=== PATIENT | female | born 1965 | race Caucasian/White ===

== ENCOUNTER 2017-01-07 00:56 | Inpatient (IN) | payer MEDICAID ==
[~2017-01-07] VITALS: Ht 172.7 cm; Wt 48.0 kg
[~2017-01-07 00:56] MED LIST: ASCO500S2 PO; AZIT250T6 PO; BACL10TA PO; CALC1TAB15 GT; CARB200T PO; DIAZ5 PO; ERGO400C GT; FAMO20 GT; GLYC1TAB11 PO; GUAI118.5 PO; IPRNEB IH; IPRNEB NEB; LEVE100S7 GT; MULT240L12 GT; NORE-20 GT; POLY17PO20 PO; TIZA4TAB4 PO
[2017-01-07 03:18] LABS: BASOPHILS % (AUTO) 0.6 % (0.0-2.0); EOSINOPHILS % (AUTO) 6.1 % (1.0-6.0); HEMATOCRIT 37.1 % (36-46); HEMOGLOBIN 12.2 g/dL (12.0-16.0); LYMPHOCYTES # (AUTO) 2.4 K/uL (1.0-4.8); LYMPHOCYTES % (AUTO) 20.5 % (22.0-44.0); MEAN CORPUSCULAR HEMOGLOBIN 31.6 pg (26.0-34.0); MEAN CORPUSCULAR HGB CONC 32.9 G/dL (31.0-37.0); MEAN CORPUSCULAR VOLUME 96 fL (80-100); MONOCYTES # (AUTO) 0.6 K/uL (0.1-1.0); MONOCYTES % (AUTO) 5.4 % (2.0-9.0); NEUTROPHILS % (AUTO) 67.4 % (40.0-70.0); PLATELET COUNT (AUTO) 288 K/uL (150-450); RED BLOOD CELL COUNT(AUTO) 3.87 MIL/uL (4.00-5.20); RED CELL DISTRIBUTION WIDTH 13.1 % (11.5-14.5); WHITE BLOOD COUNT (AUTO) 11.8 K/uL (4.5-11.0)
[2017-01-07 03:24] LABS: ANION GAP 7 mmol/L (8-16); CALCIUM, TOTAL 8.3 mg/dL (8.8-10.5); CARBON DIOXIDE 28 mmol/L (22-29); CHLORIDE 99 mmol/L (98-107); CREATININE 0.53 mg/dL (0.60-1.30); GLOMERULAR FILTR. RATE CALC > 60 mL/min (>60); POTASSIUM 4.6 mmol/L (3.5-5.1); SODIUM SERUM 134 mmol/L (136-145); UREA NITROGEN, BLOOD 22 mg/dL (7-18)
[2017-01-07] MEDS ORDERED: CefTRIAXone 1 GM/DEXTROSE 50 ML IV ONE (03:30)
[2017-01-07] MEDS ORDERED: IPRATROPIUM BROMIDE 0.5 MG/2.5 ML NEB SOLUTION NEB ONE (03:30)
[2017-01-07] MEDS ORDERED: MethylPREDNISolone SOD SUCC 125 MG/2 ML VIAL IVP ONE (03:30)
[2017-01-07] MEDS ORDERED: LORazepam 2 MG/ML VIAL IVP ONE (03:30)
[2017-01-07] MEDS ORDERED: ALBUTEROL SULFATE 5 MG/ML 20 ML NEB SOLN [BULK] NEB ONE (03:30)
[2017-01-07 03:32] LABS: LACTIC ACID 1.3 mmol/L (0.4-2.0)
[2017-01-07 03:40] LABS: ALANINE AMINOTRANSFERASE 18 U/L (12-78); ALBUMIN 2.9 g/dL (3.4-5.0); ASPARTATE AMINOTRANSFERASE 13 U/L (15-37); BILIRUBIN,TOTAL 0.2 mg/dL (0.1-1.0); CREATINE KINASE, TOTAL 54 U/L (26-192); TOTAL PROTEIN, SERUM 7.1 g/dL (6.4-8.2)
[2017-01-07 03:41] LABS: PROTHROMBIN TIME 10.3 SEC (9.4-11.6)
[2017-01-07] MEDS ORDERED: 0.9% SODIUM CHLORIDE 5 ML NEB SOLUTION NEB ONE (03:55)
[2017-01-07 04:20] LABS: APPEARANCE,URINE CLOUDY (CLEAR); GLUCOSE, URINE (UA) NEGATIVE (NEGATIVE); KETONES,URINE NEGATIVE (NEGATIVE); LEUKOCYTE ESTERASE ,URINE NEGATIVE (NEGATIVE); OCCULT BLOOD,URINE NEGATIVE (NEGATIVE); PROTEIN,URINE NEGATIVE (NEGATIVE)
[2017-01-07 04:20] LABS: B-TYPE NATRIURETIC PEPTIDE 40 pg/mL (0-100)
[2017-01-07 04:27] LABS: ADD UA MICROSCOPIC NO
[2017-01-07] MEDS ORDERED: CARBAMAZEPINE 200 MG/10 ML JT ONE (04:45)
[2017-01-07] MEDS ORDERED: UDCUP JT ONE (04:45)
[2017-01-07] MEDS ORDERED: ONDANSETRON HCL 4 MG/2 ML VIAL IVP PRN (05:45)
[2017-01-07] MEDS ORDERED: IPRATROPIUM BROMIDE 0.5 MG/2.5 ML NEB SOLUTION NEB PRN (05:45)
[2017-01-07] MEDS ORDERED: 0.9% SODIUM CHLORIDE 10 ML SYRINGE IVP PRN (05:45)
[2017-01-07] MEDS ORDERED: ALBUTEROL SULFATE 2.5 MG/0.5 ML NEB SOLUTION NEB PRN (05:45)
[2017-01-07] MEDS ORDERED: OxyCODONE HCL/ACETAMINOPHEN 5-325 MG TABLET GT PRN ×2 (05:45)
[2017-01-07] MEDS: ALBUTEROL SULFATE 2.5 MG/0.5 ML NEB SOLUTION NEB SCH ×3 (07:04→19:58)
[2017-01-07] MEDS: IPRATROPIUM BROMIDE 0.5 MG/2.5 ML NEB SOLUTION NEB SCH ×3 (07:04→19:58)
[2017-01-07] MEDS: TiZANidine HCL 4 MG TABLET GT SCH ×3 (08:21→18:00)
[2017-01-07] MEDS: UDCUP PO SCH ×3 (08:27→22:27)
[2017-01-07] MEDS: CARBAMAZEPINE 200 MG/10 ML PO SCH ×3 (08:27→22:27)
[2017-01-07] MEDS: MULTIVITAMINS WITH MINERALS, THERAPEUTIC 15 ML UDCUP GT SCH (08:28)
[2017-01-07] MEDS: MethylPREDNISolone SOD SUCC 125 MG/2 ML VIAL IVP SCH ×2 (08:29→16:54)
[2017-01-07] MEDS: DOCUSATE SODIUM 100 MG CAPSULE GT SCH ×2 (09:18→22:27)
[2017-01-07] MEDS: LevETIRAcetam 100 MG/ML 5 ML SOLUTION UDCUP GT SCH ×2 (09:19→22:27)
[2017-01-07] MEDS: CALCIUM OYSTER SHELL 500 MG TABLET GT SCH (09:20)
[2017-01-07] MEDS: BACLOFEN 10 MG TABLET GT SCH ×4 (09:20→22:26)
[2017-01-07] MEDS: POLYETHYLENE GLYCOL 3350 17 GM PACKET GT SCH (09:20)
[2017-01-07] MEDS: DIAZEPAM 5 MG TABLET GT SCH ×2 (09:21→22:26)
[2017-01-07] MEDS: PANTOPRAZOLE SODIUM 40 MG/VIAL IVP SCH (09:21)
[2017-01-07] MEDS: ASCORBIC ACID 500 MG TABLET GT SCH (09:21)
[2017-01-07] MEDS: GLYCOPYRROLATE 1 MG TABLET GT SCH ×2 (09:21→22:27)
[2017-01-07 13:43] VITALS: BP 129/83
[2017-01-07 14:02] VITALS: BP 104/52
[2017-01-07 17:20] VITALS: BP 125/81
[2017-01-07 18:08] VITALS: BP 122/75
[2017-01-07] MEDS ORDERED: PNEUMOCOCCAL VACCINE POLYVALENT 0.5 ML VIAL [PPSV23] IM ONE (20:00)
[2017-01-07] MEDS ORDERED: NORETHINDRONE ETHINYL ESTRAD GT SCH (20:00)
[2017-01-07 20:30] VITALS: BP 124/78
[2017-01-07] MEDS ORDERED: HALOPERIDOL LACTATE 5 MG/ML VIAL IVP PRN (22:00)
[2017-01-07] MEDS ORDERED: LORazepam 2 MG/ML VIAL IVP PRN (22:00)
[2017-01-07] MEDS: CHOLECALCIFEROL (VIT D3) 400 UNITS TABLET PO SCH (22:27)
[2017-01-07 23:30] VITALS: BP 118/74
[2017-01-08] MEDS: TiZANidine HCL 4 MG TABLET GT SCH ×4 (00:10→18:55)
[2017-01-08] MEDS: MethylPREDNISolone SOD SUCC 125 MG/2 ML VIAL IVP SCH ×3 (00:11→18:45)
[2017-01-08] MEDS: IPRATROPIUM BROMIDE 0.5 MG/2.5 ML NEB SOLUTION NEB SCH ×4 (02:39→19:07)
[2017-01-08] MEDS: ALBUTEROL SULFATE 2.5 MG/0.5 ML NEB SOLUTION NEB SCH ×4 (02:39→19:07)
[2017-01-08] MEDS: CARBAMAZEPINE 200 MG/10 ML PO SCH ×3 (06:07→21:15)
[2017-01-08] MEDS: UDCUP PO SCH ×3 (06:07→21:15)
[2017-01-08 06:38] LABS: BASOPHILS % (AUTO) 0.3 % (0.0-2.0); EOSINOPHILS % (AUTO) 0 % (1.0-6.0); HEMATOCRIT 36.3 % (36-46); HEMOGLOBIN 12.1 g/dL (12.0-16.0); LYMPHOCYTES # (AUTO) 0.9 K/uL (1.0-4.8); LYMPHOCYTES % (AUTO) 7.9 % (22.0-44.0); MEAN CORPUSCULAR HEMOGLOBIN 32.1 pg (26.0-34.0); MEAN CORPUSCULAR HGB CONC 33.4 G/dL (31.0-37.0); MEAN CORPUSCULAR VOLUME 96 fL (80-100); MONOCYTES # (AUTO) 0.3 K/uL (0.1-1.0); MONOCYTES % (AUTO) 2.5 % (2.0-9.0); NEUTROPHILS # (AUTO) 10.7 K/uL (1.8-7.7); PLATELET COUNT (AUTO) 278 K/uL (150-450); RED BLOOD CELL COUNT(AUTO) 3.78 MIL/uL (4.00-5.20); RED CELL DISTRIBUTION WIDTH 12.9 % (11.5-14.5)
[2017-01-08 06:56] LABS: ANION GAP 8 mmol/L (8-16); CALCIUM, TOTAL 8.8 mg/dL (8.8-10.5); CARBON DIOXIDE 25 mmol/L (22-29); CHLORIDE 97 mmol/L (98-107); CREATININE 0.55 mg/dL (0.60-1.30); GLOMERULAR FILTR. RATE CALC > 60 mL/min (>60); POTASSIUM 4.1 mmol/L (3.5-5.1); SODIUM SERUM 130 mmol/L (136-145); UREA NITROGEN, BLOOD 15 mg/dL (7-18)
[2017-01-08 07:11] LABS: NEUTROPHILS % (AUTO) 89.3 % (40.0-70.0)
[2017-01-08 07:12] LABS: RBC MORPHOLOGY COMMENT NORMAL RBC MORPH
[2017-01-08 07:48] VITALS: BP 96/54
[2017-01-08] MEDS: CALCIUM OYSTER SHELL 500 MG TABLET GT SCH (09:24)
[2017-01-08] MEDS: LevETIRAcetam 100 MG/ML 5 ML SOLUTION UDCUP GT SCH ×2 (09:24→21:15)
[2017-01-08] MEDS: ASCORBIC ACID 500 MG TABLET GT SCH (09:24)
[2017-01-08] MEDS: DIAZEPAM 5 MG TABLET GT SCH ×2 (09:24→21:16)
[2017-01-08] MEDS: BACLOFEN 10 MG TABLET GT SCH ×4 (09:25→21:16)
[2017-01-08] MEDS: MULTIVITAMINS WITH MINERALS, THERAPEUTIC 15 ML UDCUP GT SCH (09:25)
[2017-01-08] MEDS: POLYETHYLENE GLYCOL 3350 17 GM PACKET GT SCH (09:26)
[2017-01-08] MEDS: DOCUSATE SODIUM 100 MG CAPSULE GT SCH ×2 (09:30→21:16)
[2017-01-08] MEDS: GLYCOPYRROLATE 1 MG TABLET GT SCH ×2 (09:30→21:16)
[2017-01-08 12:54] VITALS: BP 112/82
[2017-01-08] MEDS: PANTOPRAZOLE SODIUM 40 MG/VIAL IVP SCH (18:45)
[2017-01-08 20:25] VITALS: BP 101/72
[2017-01-08] MEDS: CHOLECALCIFEROL (VIT D3) 400 UNITS TABLET PO SCH (21:15)
[2017-01-08] MEDS ORDERED: SODIUM CHLORIDE 0.9% IRRIG BTL 1,000 ML IRRIG ONE (21:27)
[2017-01-08 23:57] VITALS: BP 135/86
[2017-01-09] MEDS: TiZANidine HCL 4 MG TABLET GT SCH ×5 (00:30→23:54)
[2017-01-09] MEDS: MethylPREDNISolone SOD SUCC 125 MG/2 ML VIAL IVP SCH ×4 (00:30→23:54)
[2017-01-09] MEDS: IPRATROPIUM BROMIDE 0.5 MG/2.5 ML NEB SOLUTION NEB SCH ×4 (02:28→19:39)
[2017-01-09] MEDS: ALBUTEROL SULFATE 2.5 MG/0.5 ML NEB SOLUTION NEB SCH ×4 (02:28→19:39)
[2017-01-09] MEDS ORDERED: WATER FOR IRRIGATION,STERILE 1000 ML SOLUTION BOTTLE ONE (04:36)
[2017-01-09 04:48] VITALS: BP 143/94
[2017-01-09] MEDS: CARBAMAZEPINE 200 MG/10 ML PO SCH ×3 (06:42→20:06)
[2017-01-09] MEDS: UDCUP PO SCH ×3 (06:42→20:06)
[2017-01-09 08:24] VITALS: BP 132/90
[2017-01-09] MEDS: POLYETHYLENE GLYCOL 3350 17 GM PACKET GT SCH (08:39)
[2017-01-09] MEDS: LevETIRAcetam 100 MG/ML 5 ML SOLUTION UDCUP GT SCH ×2 (08:39→20:06)
[2017-01-09] MEDS: GLYCOPYRROLATE 1 MG TABLET GT SCH ×2 (08:39→20:05)
[2017-01-09] MEDS: BACLOFEN 10 MG TABLET GT SCH ×4 (08:40→20:05)
[2017-01-09] MEDS: ASCORBIC ACID 500 MG TABLET GT SCH (08:40)
[2017-01-09] MEDS: MULTIVITAMINS WITH MINERALS, THERAPEUTIC 15 ML UDCUP GT SCH (08:40)
[2017-01-09] MEDS: DOCUSATE SODIUM 100 MG CAPSULE GT SCH ×2 (08:40→20:04)
[2017-01-09] MEDS: CALCIUM OYSTER SHELL 500 MG TABLET GT SCH (08:40)
[2017-01-09] MEDS: DIAZEPAM 5 MG TABLET GT SCH ×2 (08:41→20:05)
[2017-01-09] MEDS: PANTOPRAZOLE SODIUM 40 MG/VIAL IVP SCH (08:59)
[2017-01-09 11:55] VITALS: BP 117/74
[2017-01-09 15:27] LABS: BASOPHILS % (AUTO) 0.4 % (0.0-2.0); EOSINOPHILS % (AUTO) 0.1 % (1.0-6.0); HEMATOCRIT 38.4 % (36-46); HEMOGLOBIN 12.7 g/dL (12.0-16.0); LYMPHOCYTES # (AUTO) 3.4 K/uL (1.0-4.8); LYMPHOCYTES % (AUTO) 24.2 % (22.0-44.0); MEAN CORPUSCULAR HGB CONC 33.2 G/dL (31.0-37.0); MEAN CORPUSCULAR VOLUME 97 fL (80-100); MONOCYTES # (AUTO) 1.5 K/uL (0.1-1.0); MONOCYTES % (AUTO) 10.4 % (2.0-9.0); NEUTROPHILS # (AUTO) 9.1 K/uL (1.8-7.7); NEUTROPHILS % (AUTO) 64.9 % (40.0-70.0); PLATELET COUNT (AUTO) 290 K/uL (150-450); RED BLOOD CELL COUNT(AUTO) 3.97 MIL/uL (4.00-5.20); RED CELL DISTRIBUTION WIDTH 13.2 % (11.5-14.5)
[2017-01-09 15:36] LABS: ANION GAP 10 mmol/L (8-16); CARBON DIOXIDE 26 mmol/L (22-29); CHLORIDE 100 mmol/L (98-107); POTASSIUM 3.5 mmol/L (3.5-5.1); SODIUM SERUM 136 mmol/L (136-145); UREA NITROGEN, BLOOD 21 mg/dL (7-18)
[2017-01-09 15:50] LABS: CALCIUM, TOTAL 8.8 mg/dL (8.8-10.5); CREATININE 0.57 mg/dL (0.60-1.30); GLOMERULAR FILTR. RATE CALC > 60 mL/min (>60)
[2017-01-09 16:56] VITALS: BP 144/87
[2017-01-09 19:30] VITALS: BP 131/87
[2017-01-09] MEDS: CHOLECALCIFEROL (VIT D3) 400 UNITS TABLET PO SCH (20:05)
[2017-01-10 00:06] VITALS: BP 126/65
[2017-01-10] MEDS: IPRATROPIUM BROMIDE 0.5 MG/2.5 ML NEB SOLUTION NEB SCH ×4 (02:18→19:41)
[2017-01-10] MEDS: ALBUTEROL SULFATE 2.5 MG/0.5 ML NEB SOLUTION NEB SCH ×4 (02:18→19:41)
[2017-01-10 04:32] VITALS: BP 113/61
[2017-01-10] MEDS: CARBAMAZEPINE 200 MG/10 ML PO SCH ×2 (05:47→09:24)
[2017-01-10] MEDS: UDCUP PO SCH ×2 (05:47→09:24)
[2017-01-10] MEDS: TiZANidine HCL 4 MG TABLET GT SCH ×2 (05:47→12:38)
[2017-01-10 08:06] VITALS: BP 104/67
[2017-01-10] MEDS: DOCUSATE SODIUM 100 MG CAPSULE GT SCH (09:20)
[2017-01-10] MEDS: BACLOFEN 10 MG TABLET GT SCH (09:20)
[2017-01-10] MEDS: MethylPREDNISolone SOD SUCC 125 MG/2 ML VIAL IVP SCH (09:20)
[2017-01-10] MEDS: ASCORBIC ACID 500 MG TABLET GT SCH (09:21)
[2017-01-10] MEDS: POLYETHYLENE GLYCOL 3350 17 GM PACKET GT SCH (09:21)
[2017-01-10] MEDS: DIAZEPAM 5 MG TABLET GT SCH (09:21)
[2017-01-10] MEDS: CALCIUM OYSTER SHELL 500 MG TABLET GT SCH (09:21)
[2017-01-10] MEDS: PANTOPRAZOLE SODIUM 40 MG/VIAL IVP SCH (09:22)
[2017-01-10] MEDS: LevETIRAcetam 100 MG/ML 5 ML SOLUTION UDCUP GT SCH (09:24)
[2017-01-10] MEDS: MULTIVITAMINS WITH MINERALS, THERAPEUTIC 15 ML UDCUP GT SCH (09:24)
[2017-01-10] MEDS: GLYCOPYRROLATE 1 MG TABLET GT SCH (09:25)
[2017-01-10 11:43] VITALS: BP 113/76
[2017-01-10 14:57] LABS: BASOPHILS % (AUTO) 0.4 % (0.0-2.0); EOSINOPHILS % (AUTO) 0 % (1.0-6.0); HEMATOCRIT 39.6 % (36-46); LYMPHOCYTES # (AUTO) 1.2 K/uL (1.0-4.8); LYMPHOCYTES % (AUTO) 8.6 % (22.0-44.0); MEAN CORPUSCULAR HEMOGLOBIN 31.7 pg (26.0-34.0); MEAN CORPUSCULAR HGB CONC 32.8 G/dL (31.0-37.0); MEAN CORPUSCULAR VOLUME 97 fL (80-100); MONOCYTES # (AUTO) 0.5 K/uL (0.1-1.0); MONOCYTES % (AUTO) 3.4 % (2.0-9.0); NEUTROPHILS # (AUTO) 11.8 K/uL (1.8-7.7); PLATELET COUNT (AUTO) 282 K/uL (150-450); RED CELL DISTRIBUTION WIDTH 13.1 % (11.5-14.5); WHITE BLOOD COUNT (AUTO) 13.5 K/uL (4.5-11.0)
[2017-01-10 15:16] LABS: ANION GAP 10 mmol/L (8-16); CALCIUM, TOTAL 8.8 mg/dL (8.8-10.5); CARBON DIOXIDE 25 mmol/L (22-29); CHLORIDE 101 mmol/L (98-107); CREATININE 0.61 mg/dL (0.60-1.30); GLOMERULAR FILTR. RATE CALC > 60 mL/min (>60); POTASSIUM 4.3 mmol/L (3.5-5.1); SODIUM SERUM 136 mmol/L (136-145); UREA NITROGEN, BLOOD 26 mg/dL (7-18)
[2017-01-10 15:18] LABS: NEUTROPHILS % (AUTO) 87.6 % (40.0-70.0)
[2017-01-10 17:54] VITALS: BP 115/76
== END 2017-01-10 20:00 | disposition home or self-care (01) | DRG 140 ==
LOC: EMS 00:57 → AHU 10:47 → 6N 20:08
PROVIDERS: ADMIT Internal Medicine; ATTEND Internal Medicine
DX: J44.1 Chronic obstructive pulmonary disease with (acute) exacerbation (principal); J96.01 Acute respiratory failure with hypoxia; E43 Unspecified severe protein-calorie malnutrition; G82.50 Quadriplegia, unspecified; E86.0 Dehydration; F79 Unspecified intellectual disabilities; G80.9 Cerebral palsy, unspecified; M19.90 Unspecified osteoarthritis, unspecified site; M41.9 Scoliosis, unspecified; Z85.72 Personal history of non-Hodgkin lymphomas; Z88.8 Allergy status to other drugs, medicaments and biological substances; Z79.899 Other long term (current) drug therapy; Z93.1 Gastrostomy status; Z68.1 Body mass index [BMI] 19.9 or less, adult; Z90.49 Acquired absence of other specified parts of digestive tract; Z87.01 Personal history of pneumonia (recurrent)
CPT/HCPCS: 83605; 92610; 93005; 94640; 96365; 96375; 99285; C9113; J0696; J2060; J2930

== ENCOUNTER → 2017-04-18 | Outpatient (CLI) | payer MEDICAID ==
[~2017-04-18] MED LIST changes: -AZIT250T6 PO
== END | disposition home or self-care (01) ==
LOC: RADPV 09:05
PROVIDERS: ATTEND Family Medicine
DX: Z13.820 Encounter for screening for osteoporosis (principal); M85.88 Other specified disorders of bone density and structure, other site
CPT/HCPCS: 77080

== ENCOUNTER 2017-04-19 19:14 | Inpatient (IN) | payer MEDICAID ==
[~2017-04-19] VITALS: Ht 149.9 cm; Wt 48.5 kg
[2017-04-19] MEDS ORDERED: SODIUM CHLORIDE 0.9% 1,000 ML IV ONE ×2 (19:45→20:45)
[2017-04-19 20:16] LABS: BASOPHILS # (AUTO) 0.01 K/uL (0.00-0.20); BASOPHILS % (AUTO) 0.1 % (0.0-2.0); EOSINOPHILS # (AUTO) 0.02 K/uL (0.00-0.70); EOSINOPHILS % (AUTO) 0.11 % (1.0-6.0); HEMOGLOBIN 18.3 g/dL (12.0-16.0); LYMPHOCYTES # (AUTO) 1.4 K/uL (1.0-4.8); LYMPHOCYTES % (AUTO) 9.5 % (22.0-44.0); MEAN CORPUSCULAR HEMOGLOBIN 31.8 pg (26.0-34.0); MEAN CORPUSCULAR HGB CONC 32.6 G/dL (31.0-37.0); MEAN CORPUSCULAR VOLUME 97 fL (80-100); MONOCYTES # (AUTO) 1.7 K/uL (0.1-1.0); MONOCYTES % (AUTO) 11.8 % (2.0-9.0); NEUTROPHILS # (AUTO) 11.2 K/uL (1.8-7.7); NEUTROPHILS % (AUTO) 78.5 % (40.0-70.0); PLATELET COUNT (AUTO) 295 K/uL (150-450); RED BLOOD CELL COUNT(AUTO) 5.75 MIL/uL (4.00-5.20); RED CELL DISTRIBUTION WIDTH 13.4 % (11.5-14.5); WHITE BLOOD COUNT (AUTO) 14.3 K/uL (4.5-11.0)
[2017-04-19 20:27] LABS: CALCIUM, TOTAL 11.4 mg/dL (8.8-10.5); CREATININE 2.48 mg/dL (0.60-1.30); POTASSIUM 5.8 mmol/L (3.5-5.1)
[2017-04-19 20:34] LABS: ALBUMIN 4.3 g/dL (3.4-5.0); BILIRUBIN,TOTAL 1.2 mg/dL (0.1-1.0); TOTAL PROTEIN, SERUM 9.5 g/dL (6.4-8.2)
[2017-04-19 20:55] LABS: LACTIC ACID 3.9 mmol/L (0.4-2.0)
[2017-04-19] MEDS ORDERED: ACETAMINOPHEN 650 MG RECTAL SUPPOSITORY PR ONE (21:00)
[2017-04-19] MEDS ORDERED: VANCOMYCIN HCL 1 GM/D5% WATER 200 ML IV ONE (21:45)
[2017-04-19] MEDS ORDERED: ONDANSETRON HCL 4 MG/2 ML VIAL IVP ONE (21:45)
[2017-04-19] MEDS ORDERED: PIPERACILLIN/TAZO 3.375 GM/D5W 50 ML IV ONE (21:45)
[2017-04-19 22:11] LABS: REFLEX LACTIC ACID? YES YES
[2017-04-19] MEDS ORDERED: IPRATROPIUM BROMIDE 0.5 MG/2.5 ML NEB SOLUTION NEB ONE (22:45)
[2017-04-19] MEDS ORDERED: LEVALBUTEROL HCL 1.25 MG/0.5 ML NEB SOLUTION NEB ONE (22:45)
[2017-04-19] MEDS ORDERED: 0.9% SODIUM CHLORIDE 5 ML NEB SOLUTION NEB ONE (22:50)
[2017-04-19] MEDS ORDERED: IPRATROPIUM BROMIDE 0.5 MG/2.5 ML NEB SOLUTION NEB SCH (23:00)
[2017-04-19] MEDS ORDERED: GuaiFENesin/D-METHORPHAN [SUGAR-FREE] 200-20MG/10 ML SYRUP UDCUP PO PRN (23:00)
[2017-04-19] MEDS ORDERED: LEVALBUTEROL HCL 1.25 MG/0.5 ML NEB SOLUTION NEB SCH (23:00)
[2017-04-19] MEDS ORDERED: ONDANSETRON HCL 4 MG/2 ML VIAL IVP PRN (23:15)
[2017-04-19] MEDS ORDERED: BISACODYL 10 MG RECTAL RECTAL SUPPOSITORY PR PRN (23:15)
[2017-04-20] MEDS ORDERED: PIPERACILLIN SODIUM/TAZOBACTAM 2.25 GM in DEXTROSE 5%-WATER 50 ML IV SCH ×2
[2017-04-20] MEDS ORDERED: VANCOMYCIN HCL 1 GM/D5% WATER 200 ML IV ONE
[2017-04-20] MEDS: SODIUM CHLORIDE 0.9% 1,000 ML IV SCH ×3 (00:07→13:06)
[2017-04-20] MEDS: HEPARIN SODIUM,PORCINE 5,000 UNITS/ML VIAL SQ SCH ×3 (00:07→20:44)
[2017-04-20] MEDS ORDERED: VANCOMYCIN HCL 1 GM/D5% WATER 200 ML IV PRN (00:15)
[2017-04-20 00:44] LABS: ABG A-A DIFF O2 317.1 mmHg (10-20.0); ABG BASE EXCESS -10.8 mmol/L (-2.0-3.0); ABG OXYHEMOGLOBIN 91.4 % (94.0-100.0); ABG PCO2 32 mmHg (35-45); ABG PH 7.302 (7.35-7.450); TEMPERATURE, FAHRENHEIT, BG 99.3 FAHREN (96.0-98.6)
[2017-04-20 00:45] LABS: ALLEN TEST, BLOOD GAS Positive; IPAP, BG 14 cm H2O
[2017-04-20 01:09] LABS: APPEARANCE,URINE CLOUDY (CLEAR); GLUCOSE, URINE (UA) NEGATIVE (NEGATIVE); KETONES,URINE TRACE mg/dL (NEGATIVE); LEUKOCYTE ESTERASE ,URINE SMALL (NEGATIVE); OCCULT BLOOD,URINE MODERATE (NEGATIVE); PROTEIN,URINE SEE CONFIRM (NEGATIVE)
[2017-04-20 01:26] VITALS: BP 145/97
[2017-04-20 01:42] LABS: SULFOSALICYLIC ACID,URINE 3+ (Negative)
[2017-04-20 01:43] LABS: AMORPHOUS SEDIMENT,UR Moderate /LPF (None Seen); SQUAMOUS EPITHELIAL CELL,UR Few /LPF (None Seen)
[2017-04-20] MEDS: IPRATROPIUM BROMIDE 0.5 MG/2.5 ML NEB SOLUTION NEB SCH ×6 (03:11→23:13)
[2017-04-20] MEDS: LEVALBUTEROL HCL 1.25 MG/0.5 ML NEB SOLUTION NEB SCH ×6 (03:11→23:13)
[2017-04-20] MEDS: PIPERACILLIN SODIUM/TAZOBACTAM 2.25 GM in DEXTROSE 5%-WATER 50 ML IV SCH ×4 (04:20→22:01)
[2017-04-20 04:33] VITALS: BP 130/96
[2017-04-20] MEDS: CarBAMazepine 100 MG CHEWABLE TABLET PO SCH (07:00)
[2017-04-20 07:40] VITALS: BP 122/76
[2017-04-20 07:53] LABS: BASOPHILS # (AUTO) 0.01 K/uL (0.00-0.20); BASOPHILS % (AUTO) 0.2 % (0.0-2.0); EOSINOPHILS % (AUTO) 0 % (1.0-6.0); HEMATOCRIT 44.2 % (36-46); HEMOGLOBIN 14.8 g/dL (12.0-16.0); LYMPHOCYTES # (AUTO) 1.2 K/uL (1.0-4.8); LYMPHOCYTES % (AUTO) 17.8 % (22.0-44.0); MEAN CORPUSCULAR HEMOGLOBIN 32.3 pg (26.0-34.0); MEAN CORPUSCULAR HGB CONC 33.6 G/dL (31.0-37.0); MEAN CORPUSCULAR VOLUME 96 fL (80-100); MONOCYTES # (AUTO) 0.5 K/uL (0.1-1.0); MONOCYTES % (AUTO) 6.6 % (2.0-9.0); NEUTROPHILS # (AUTO) 5.2 K/uL (1.8-7.7); NEUTROPHILS % (AUTO) 75.5 % (40.0-70.0); PLATELET COUNT (AUTO) 197 K/uL (150-450); RED CELL DISTRIBUTION WIDTH 13.4 % (11.5-14.5); WHITE BLOOD COUNT (AUTO) 6.9 K/uL (4.5-11.0)
[2017-04-20 08:18] LABS: ALBUMIN 2.9 g/dL (3.4-5.0); BILIRUBIN,TOTAL 1.1 mg/dL (0.1-1.0); CALCIUM, TOTAL 8.6 mg/dL (8.8-10.5); CREATININE 1.24 mg/dL (0.60-1.30); MAGNESIUM 2.3 mg/dL (1.80-2.40); PHOSPHORUS 3.2 mg/dL (2.5-4.9); POTASSIUM 3.6 mmol/L (3.5-5.1); TOTAL PROTEIN, SERUM 6.8 g/dL (6.4-8.2)
[2017-04-20] MEDS: MULTIVITAMINS WITH MINERALS, THERAPEUTIC 15 ML UDCUP GT SCH (10:31)
[2017-04-20] MEDS: LevETIRAcetam 100 MG/ML 5 ML SOLUTION UDCUP GT SCH ×2 (10:32→20:43)
[2017-04-20] MEDS: POLYETHYLENE GLYCOL 3350 17 GM PACKET PO SCH (10:33)
[2017-04-20] MEDS: GLYCOPYRROLATE 1 MG TABLET PO SCH ×2 (10:33→20:44)
[2017-04-20] MEDS: PANTOPRAZOLE SODIUM 40 MG/VIAL IVP SCH (10:33)
[2017-04-20] MEDS: DIAZEPAM 5 MG TABLET PO SCH ×2 (10:33→20:44)
[2017-04-20] MEDS: CarBAMazepine 200 MG TABLET PO SCH ×2 (10:35→20:44)
[2017-04-20 11:47] VITALS: BP 128/73
[2017-04-20] MEDS ORDERED: ONDANSETRON HCL 4 MG/2 ML VIAL IVP PRN (12:00)
[2017-04-20] MEDS ORDERED: VANCOMYCIN HCL 500 MG in DEXTROSE 5%-WATER 100 ML IV ONE (12:00)
[2017-04-20 15:07] VITALS: BP 125/70
[2017-04-20] MEDS ORDERED: [UNRECOGNIZED DRUG - OTHER] GT SCH (20:00)
[2017-04-20 20:05] VITALS: BP 105/67
[2017-04-20] MEDS: VANCOMYCIN HCL 750 MG in DEXTROSE 5%-WATER 150 ML IV SCH (20:22)
[2017-04-20] MEDS: CHOLECALCIFEROL (VIT D3) 400 UNITS TABLET GT SCH (20:44)
[2017-04-21] VITALS (7 sets, daily range): BP systolic 121–149; BP diastolic 50–83
[2017-04-21] MEDS: ACETAMINOPHEN 325 MG TABLET PO PRN ×2 (00:31→16:18)
[2017-04-21] MEDS: IPRATROPIUM BROMIDE 0.5 MG/2.5 ML NEB SOLUTION NEB SCH ×6 (03:00→23:08)
[2017-04-21] MEDS: LEVALBUTEROL HCL 1.25 MG/0.5 ML NEB SOLUTION NEB SCH ×6 (03:00→23:08)
[2017-04-21] MEDS: PIPERACILLIN SODIUM/TAZOBACTAM 2.25 GM in DEXTROSE 5%-WATER 50 ML IV SCH (04:10)
[2017-04-21] MEDS: CarBAMazepine 100 MG CHEWABLE TABLET PO SCH (07:00)
[2017-04-21 07:05] LABS: ANION GAP 10 mmol/L (8-16); CALCIUM, TOTAL 8.4 mg/dL (8.8-10.5); CARBON DIOXIDE 23 mmol/L (22-29); CHLORIDE 109 mmol/L (98-107); CREATININE 0.86 mg/dL (0.60-1.30); GLOMERULAR FILTR. RATE CALC > 60 mL/min (>60); SODIUM SERUM 142 mmol/L (136-145); UREA NITROGEN, BLOOD 26 mg/dL (7-18)
[2017-04-21 07:12] LABS: POTASSIUM 2.7 mmol/L (3.5-5.1)
[2017-04-21] MEDS ORDERED: POTASSIUM CHLORIDE 20 MEQ ER TABLET PO PRN (07:45)
[2017-04-21] MEDS: MULTIVITAMINS WITH MINERALS, THERAPEUTIC 15 ML UDCUP GT SCH (09:50)
[2017-04-21] MEDS: LevETIRAcetam 100 MG/ML 5 ML SOLUTION UDCUP GT SCH ×2 (09:50→20:46)
[2017-04-21] MEDS: SODIUM CHLORIDE 0.9% 1,000 ML IV SCH (09:52)
[2017-04-21] MEDS: PANTOPRAZOLE SODIUM 40 MG/VIAL IVP SCH (09:55)
[2017-04-21] MEDS: POLYETHYLENE GLYCOL 3350 17 GM PACKET PO SCH (09:56)
[2017-04-21] MEDS: HEPARIN SODIUM,PORCINE 5,000 UNITS/ML VIAL SQ SCH ×2 (09:57→20:45)
[2017-04-21] MEDS: CarBAMazepine 200 MG TABLET PO SCH ×2 (09:57→20:44)
[2017-04-21] MEDS: GLYCOPYRROLATE 1 MG TABLET PO SCH ×2 (09:58→20:44)
[2017-04-21] MEDS: DIAZEPAM 5 MG TABLET PO SCH ×2 (09:58→20:44)
[2017-04-21] MEDS: VANCOMYCIN HCL 750 MG in DEXTROSE 5%-WATER 150 ML IV SCH ×2 (09:59→20:44)
[2017-04-21] MEDS ORDERED: SODIUM CHLORIDE 0.9% 250 ML IV ONE (10:53)
[2017-04-21] MEDS: POTASSIUM CHL 10 MEQ/WATER 50 ML IV PRN ×4 (11:03→16:59)
[2017-04-21] MEDS: PIPERACILLIN/TAZO 3.375 GM/D5W 50 ML IV SCH ×3 (12:17→23:36)
[2017-04-21] MEDS: CHOLECALCIFEROL (VIT D3) 400 UNITS TABLET GT SCH (20:44)
[2017-04-22] MEDS: POTASSIUM CHL 10 MEQ/WATER 50 ML IV PRN ×5 (00:06→23:56)
[2017-04-22] MEDS: LEVALBUTEROL HCL 1.25 MG/0.5 ML NEB SOLUTION NEB SCH ×6 (03:05→22:54)
[2017-04-22] MEDS: IPRATROPIUM BROMIDE 0.5 MG/2.5 ML NEB SOLUTION NEB SCH ×6 (03:05→22:54)
[2017-04-22] MEDS: SODIUM CHLORIDE 0.9% 1,000 ML IV SCH (04:30)
[2017-04-22 05:10] VITALS: BP 133/89
[2017-04-22] MEDS: PIPERACILLIN/TAZO 3.375 GM/D5W 50 ML IV SCH ×4 (06:02→23:10)
[2017-04-22 07:42] VITALS: BP 160/79
[2017-04-22 08:44] LABS: ANION GAP 14 mmol/L (8-16); CALCIUM, TOTAL 8.8 mg/dL (8.8-10.5); CARBON DIOXIDE 21 mmol/L (22-29); CHLORIDE 108 mmol/L (98-107); CREATININE 0.68 mg/dL (0.60-1.30); GLOMERULAR FILTR. RATE CALC > 60 mL/min (>60); POTASSIUM 3.5 mmol/L (3.5-5.1); SODIUM SERUM 143 mmol/L (136-145); UREA NITROGEN, BLOOD 16 mg/dL (7-18)
[2017-04-22] MEDS: MULTIVITAMINS WITH MINERALS, THERAPEUTIC 15 ML UDCUP GT SCH (09:53)
[2017-04-22] MEDS: CarBAMazepine 100 MG CHEWABLE TABLET PO SCH (09:53)
[2017-04-22] MEDS: VANCOMYCIN HCL 750 MG in DEXTROSE 5%-WATER 150 ML IV SCH ×2 (09:53→19:47)
[2017-04-22] MEDS: LevETIRAcetam 100 MG/ML 5 ML SOLUTION UDCUP GT SCH ×2 (09:56→19:47)
[2017-04-22] MEDS: PANTOPRAZOLE SODIUM 40 MG/VIAL IVP SCH (09:57)
[2017-04-22] MEDS: POLYETHYLENE GLYCOL 3350 17 GM PACKET PO SCH (09:58)
[2017-04-22] MEDS: GLYCOPYRROLATE 1 MG TABLET PO SCH ×2 (09:58→19:48)
[2017-04-22] MEDS: DIAZEPAM 5 MG TABLET PO SCH ×2 (09:59→19:48)
[2017-04-22] MEDS: CarBAMazepine 200 MG TABLET PO SCH ×2 (09:59→19:48)
[2017-04-22] MEDS: HEPARIN SODIUM,PORCINE 5,000 UNITS/ML VIAL SQ SCH ×2 (10:00→19:48)
[2017-04-22 11:18] VITALS: BP 142/78
[2017-04-22 14:57] VITALS: BP 156/90
[2017-04-22] MEDS: CHOLECALCIFEROL (VIT D3) 400 UNITS TABLET GT SCH (19:48)
[2017-04-22 20:12] VITALS: BP 152/91
[2017-04-22 22:03] LABS: ANION GAP 12 mmol/L (8-16); CALCIUM, TOTAL 8.5 mg/dL (8.8-10.5); CARBON DIOXIDE 22 mmol/L (22-29); CHLORIDE 108 mmol/L (98-107); CREATININE 0.88 mg/dL (0.60-1.30); GLOMERULAR FILTR. RATE CALC > 60 mL/min (>60); POTASSIUM 3.3 mmol/L (3.5-5.1); SODIUM SERUM 142 mmol/L (136-145); UREA NITROGEN, BLOOD 14 mg/dL (7-18)
[2017-04-23 00:08] VITALS: BP 140/95
[2017-04-23] MEDS: POTASSIUM CHL 10 MEQ/WATER 50 ML IV PRN ×2 (02:25→03:27)
[2017-04-23] MEDS: LEVALBUTEROL HCL 1.25 MG/0.5 ML NEB SOLUTION NEB SCH ×5 (04:27→19:00)
[2017-04-23] MEDS: IPRATROPIUM BROMIDE 0.5 MG/2.5 ML NEB SOLUTION NEB SCH ×5 (04:27→19:00)
[2017-04-23 05:16] VITALS: BP 158/94
[2017-04-23] MEDS: PIPERACILLIN/TAZO 3.375 GM/D5W 50 ML IV SCH (05:50)
[2017-04-23] MEDS: CarBAMazepine 100 MG CHEWABLE TABLET PO SCH (07:00)
[2017-04-23 07:34] LABS: ANION GAP 13 mmol/L (8-16); CALCIUM, TOTAL 8.8 mg/dL (8.8-10.5); CARBON DIOXIDE 22 mmol/L (22-29); CHLORIDE 112 mmol/L (98-107); CREATININE 0.91 mg/dL (0.60-1.30); GLOMERULAR FILTR. RATE CALC > 60 mL/min (>60); SODIUM SERUM 147 mmol/L (136-145); UREA NITROGEN, BLOOD 13 mg/dL (7-18)
[2017-04-23 08:15] VITALS: BP 130/82
[2017-04-23] MEDS: MULTIVITAMINS WITH MINERALS, THERAPEUTIC 15 ML UDCUP GT SCH (09:22)
[2017-04-23] MEDS: POLYETHYLENE GLYCOL 3350 17 GM PACKET PO SCH (09:22)
[2017-04-23] MEDS: PANTOPRAZOLE SODIUM 40 MG/VIAL IVP SCH (09:22)
[2017-04-23] MEDS: LevETIRAcetam 100 MG/ML 5 ML SOLUTION UDCUP GT SCH (09:22)
[2017-04-23] MEDS: CarBAMazepine 200 MG TABLET PO SCH (09:23)
[2017-04-23] MEDS: GLYCOPYRROLATE 1 MG TABLET PO SCH (09:23)
[2017-04-23] MEDS: HEPARIN SODIUM,PORCINE 5,000 UNITS/ML VIAL SQ SCH (09:24)
[2017-04-23] MEDS: DIAZEPAM 5 MG TABLET PO SCH (09:29)
[2017-04-23] MEDS: VANCOMYCIN HCL 750 MG in DEXTROSE 5%-WATER 150 ML IV SCH (09:29)
[2017-04-23] MEDS ORDERED: *CLINICAL-LEVOFLOXACIN IVPB DOSING CLINICAL ONE ×2 (10:30)
[2017-04-23] MEDS ORDERED: LEVOFLOXACIN 750 MG/D5% WATER 150 ML IV SCH (12:00)
[2017-04-23 12:04] VITALS: BP 159/91
[2017-04-23 12:18] LABS: ORGANISM ID Not indicated.
[2017-04-23 15:46] VITALS: BP 134/94
[2017-04-23] MEDS ORDERED: LEVO250 PO (17:29)
[2017-04-23 21:05] LABS: MYCOPLASMA AB IGG 263 U/mL (0-99)
== END 2017-04-23 19:30 | disposition home or self-care (01) | DRG 720 ==
LOC: EMS 19:15 → 5N 22:37
PROVIDERS: ADMIT Internal Medicine; ATTEND Internal Medicine
PROC: 5A09357 Assistance with Respiratory Ventilation, Less than 24 Consecutive Hours, Continuous Positive Airway Pressure (ICD-10-PCS; principal; 2017-04-19)
DX: A41.9 Sepsis, unspecified organism (principal); J96.01 Acute respiratory failure with hypoxia; K72.00 Acute and subacute hepatic failure without coma; N17.9 Acute kidney failure, unspecified; E87.2 Acidosis; R53.2 Functional quadriplegia; J18.9 Pneumonia, unspecified organism; R13.10 Dysphagia, unspecified; E86.0 Dehydration; E87.5 Hyperkalemia; G80.9 Cerebral palsy, unspecified; M41.9 Scoliosis, unspecified; Z90.49 Acquired absence of other specified parts of digestive tract; Z88.8 Allergy status to other drugs, medicaments and biological substances; F79 Unspecified intellectual disabilities; G40.909 Epilepsy, unspecified, not intractable, without status epilepticus; J44.0 Chronic obstructive pulmonary disease with (acute) lower respiratory infection; R65.20 Severe sepsis without septic shock; Z93.1 Gastrostomy status; R74.0 Nonspecific elevation of levels of transaminase and lactic acid dehydrogenase [LDH]; R79.89 Other specified abnormal findings of blood chemistry; B96.20 Unspecified Escherichia coli [E. coli] as the cause of diseases classified elsewhere; B95.62 Methicillin resistant Staphylococcus aureus infection as the cause of diseases classified elsewhere
CPT/HCPCS: 71250; 74000; 76705; 76770; 82805; 83605; 83735; 84100; 84132; 84145; 87040; 87070; 87081; 87205; 87449; 87798; 87899; 93005; 93306; 93970; 94640; 94644; 94660; 96361; 96365; 96366; 96368; 96375; 97162; 99291; C9113; J1644; J1956; J2405; J2543; J3370; J3480; J7030; J7050; J7060

== ENCOUNTER 2017-10-15 19:42 | Inpatient (IN) | payer MEDICAID ==
[~2017-10-15] VITALS: Ht 149.9 cm; Wt 45.2 kg
[~2017-10-15 19:42] MED LIST changes: +CARB200T GT; +DIAZ5 GT; -DIAZ5 PO; +GLYC1TAB11 GT; -GLYC1TAB11 PO; +LEVO250 PO; +TIZA4TAB4 GT; -TIZA4TAB4 PO
[2017-10-15] MEDS ORDERED: VITAD1000 GT (20:04)
[2017-10-15] MEDS ORDERED: ASCO500 GT (20:04)
[2017-10-15] MEDS ORDERED: DIPH50CA35 GT (20:04)
[2017-10-15] MEDS ORDERED: ONDA4 GT (20:04)
[2017-10-15] MEDS ORDERED: POLY17PO20 GT (20:04)
[2017-10-15] MEDS ORDERED: NORE-53 GT (20:04)
[2017-10-15] MEDS ORDERED: SODIUM CHLORIDE 0.9% 1,000 ML IV ONE ×2 (20:15→22:00)
[2017-10-15 21:50] LABS: BASOPHILS % (AUTO) 0.2 % (0.0-2.0); EOSINOPHILS % (AUTO) 1.6 % (1.0-6.0); HEMATOCRIT 33.5 % (36-46); HEMOGLOBIN 11.9 g/dL (12.0-16.0); LYMPHOCYTES # (AUTO) 1.9 K/uL (1.0-4.8); LYMPHOCYTES % (AUTO) 26.1 % (22.0-44.0); MEAN CORPUSCULAR HEMOGLOBIN 33.3 pg (26.0-34.0); MEAN CORPUSCULAR HGB CONC 35.5 G/dL (31.0-37.0); MEAN CORPUSCULAR VOLUME 94 fL (80-100); MONOCYTES # (AUTO) 0.7 K/uL (0.1-1.0); MONOCYTES % (AUTO) 9.9 % (2.0-9.0); NEUTROPHILS # (AUTO) 4.5 K/uL (1.8-7.7); NEUTROPHILS % (AUTO) 62.2 % (40.0-70.0); PLATELET COUNT (AUTO) 202 K/uL (150-450); RED BLOOD CELL COUNT(AUTO) 3.57 MIL/uL (4.00-5.20); RED CELL DISTRIBUTION WIDTH 12.7 % (11.5-14.5); WHITE BLOOD COUNT (AUTO) 7.3 K/uL (4.5-11.0)
[2017-10-15 21:59] LABS: INFLUENZA TYPE B NEGATIVE FOR TYPE B (NEGATIVE)
[2017-10-15] MEDS ORDERED: ALBUTEROL SULFATE 2.5 MG/0.5 ML NEB SOLUTION NEB ONE ×2 (22:00→23:00)
[2017-10-15 22:04] LABS: ANION GAP 8 mmol/L (8-16); CALCIUM, TOTAL 8.8 mg/dL (8.8-10.5); CARBON DIOXIDE 27 mmol/L (22-29); CHLORIDE 99 mmol/L (98-107); GLOMERULAR FILTR. RATE CALC > 60 mL/min (>60); POTASSIUM 4.2 mmol/L (3.5-5.1); SODIUM SERUM 134 mmol/L (136-145); UREA NITROGEN, BLOOD 17 mg/dL (7-18)
[2017-10-15 22:10] LABS: ALANINE AMINOTRANSFERASE 22 U/L (12-78); ALBUMIN 3.1 g/dL (3.4-5.0); ASPARTATE AMINOTRANSFERASE 18 U/L (15-37); BILIRUBIN,TOTAL 0.2 mg/dL (0.1-1.0); TOTAL PROTEIN, SERUM 7.2 g/dL (6.4-8.2)
[2017-10-15] MEDS ORDERED: 0.9% SODIUM CHLORIDE 5 ML NEB SOLUTION NEB ONE (22:11)
[2017-10-15] MEDS ORDERED: IPRATROPIUM BROMIDE 0.5 MG/2.5 ML NEB SOLUTION NEB ONE (23:00)
[2017-10-16] MEDS ORDERED: ALBUTEROL SULFATE 2.5 MG/0.5 ML NEB SOLUTION NEB ONE
[2017-10-16] MEDS ORDERED: IPRATROPIUM BROMIDE 0.5 MG/2.5 ML NEB SOLUTION NEB ONE
[2017-10-16] MEDS ORDERED: LEVOFLOXACIN 750 MG/D5% WATER 150 ML IV ONE
[2017-10-16] MEDS ORDERED: MethylPREDNISolone SOD SUCC 125 MG/2 ML VIAL IVP ONE (01:15)
[2017-10-16] MEDS ORDERED: 0.9% SODIUM CHLORIDE 10 ML SYRINGE IVP PRN (01:45)
[2017-10-16] MEDS ORDERED: ACETAMINOPHEN 325 MG TABLET PO PRN (01:45)
[2017-10-16] MEDS ORDERED: ONDANSETRON HCL 4 MG/2 ML VIAL IVP PRN ×2 (01:45→02:15)
[2017-10-16] MEDS ORDERED: IPRATROPIUM BROMIDE 0.5 MG/2.5 ML NEB SOLUTION NEB SCH (02:00)
[2017-10-16] MEDS ORDERED: ALBUTEROL SULFATE 2.5 MG/0.5 ML NEB SOLUTION NEB SCH (02:00)
[2017-10-16] MEDS ORDERED: ACETAMINOPHEN 1000 MG/ISO-OSM 100 ML IV ONE ×2 (02:00)
[2017-10-16] MEDS ORDERED: ACETAMINOPHEN 650 MG/20.3 ML SOLUTION UDCUP GT PRN (02:15)
[2017-10-16] MEDS ORDERED: MORPHINE SULFATE 2 MG/ML SYRINGE IVP PRN (02:15)
[2017-10-16] MEDS ORDERED: IPRATROPIUM BROMIDE 0.5 MG/2.5 ML NEB SOLUTION NEB PRN ×2 (02:15→13:15)
[2017-10-16] MEDS ORDERED: OxyCODONE HCL/ACETAMINOPHEN 5-325 MG TABLET GT PRN (02:15)
[2017-10-16] MEDS ORDERED: ZOLPIDEM TARTRATE 5 MG TABLET GT PRN (02:15)
[2017-10-16] MEDS ORDERED: BISACODYL 10 MG RECTAL RECTAL SUPPOSITORY PR PRN (02:15)
[2017-10-16] MEDS ORDERED: MAGNESIUM HYDROXIDE SUSPENSION 30 ML UDCUP GT PRN (02:15)
[2017-10-16] MEDS ORDERED: ALBUTEROL SULFATE 2.5 MG/0.5 ML NEB SOLUTION NEB PRN ×2 (02:15→13:15)
[2017-10-16] MEDS ORDERED: GuaiFENesin/D-METHORPHAN/PHENYLEPH 5 ML LIQUID ORAL.SYG GT PRN (02:15)
[2017-10-16 02:44] VITALS: BP 147/83
[2017-10-16] MEDS ORDERED: INFLUENZA VIRUS VACCINE QVS 2017-18 (3YR+)/PF 60 MCG/0.5 ML SYRINGE IM ONE (04:15)
[2017-10-16 04:44] VITALS: BP 161/84
[2017-10-16] MEDS: CARBAMAZEPINE 200 MG/10 ML GT SCH ×3 (05:34→21:50)
[2017-10-16] MEDS: UDCUP GT SCH ×3 (05:34→21:50)
[2017-10-16 07:23] VITALS: BP 152/92
[2017-10-16] MEDS ORDERED: OXYGEN THERAPY IH SCH (08:00)
[2017-10-16] MEDS: OXYGEN THERAPY IH SCH ×2 (08:14→20:45)
[2017-10-16] MEDS: LevETIRAcetam 100 MG/ML 5 ML SOLUTION UDCUP GT SCH ×2 (08:17→21:50)
[2017-10-16] MEDS: POLYETHYLENE GLYCOL 3350 17 GM PACKET GT SCH (08:17)
[2017-10-16] MEDS: BACLOFEN 10 MG TABLET GT SCH ×4 (08:17→21:49)
[2017-10-16] MEDS: CALCIUM OYSTER SHELL 500 MG TABLET GT SCH (08:18)
[2017-10-16] MEDS: GLYCOPYRROLATE 1 MG TABLET GT SCH ×2 (08:19→21:49)
[2017-10-16] MEDS: FAMOTIDINE 20 MG TABLET GT SCH (08:19)
[2017-10-16] MEDS: CHOLECALCIFEROL (VIT D3) 1,000 UNITS TABLET GT SCH (08:20)
[2017-10-16] MEDS: TiZANidine HCL 4 MG TABLET GT SCH ×3 (08:20→21:48)
[2017-10-16] MEDS: DIAZEPAM 5 MG TABLET GT SCH ×2 (08:20→21:49)
[2017-10-16] MEDS: ASCORBIC ACID 500 MG TABLET GT SCH ×2 (08:20→21:48)
[2017-10-16] MEDS: HEPARIN SODIUM,PORCINE 5,000 UNITS/ML VIAL SQ SCH ×2 (08:21→21:48)
[2017-10-16 11:07] VITALS: BP 121/55
[2017-10-16] MEDS ORDERED: DIPH25 PO (13:15)
[2017-10-16] MEDS: IPRATROPIUM BROMIDE 0.5 MG/2.5 ML NEB SOLUTION NEB SCH ×2 (14:32→20:45)
[2017-10-16 15:13] VITALS: BP 138/95
[2017-10-16 19:18] VITALS: BP 105/79
[2017-10-16] MEDS: ALBUTEROL SULFATE 2.5 MG/0.5 ML NEB SOLUTION NEB SCH (20:45)
[2017-10-16] MEDS ORDERED: MUPIROCIN CALCIUM 2% 22 GM OINTMENT NASAL SCH (21:00)
[2017-10-16] MEDS: DiphenhydrAMINE HCL 25 MG/10 ML ELIXIR UDCUP GT SCH (21:50)
[2017-10-16] MEDS ORDERED: SODIUM CHLORIDE 0.9% 500 ML IV ONE (23:21)
[2017-10-16] MEDS: LEVOFLOXACIN 500 MG/D5% WATER 100 ML IV SCH (23:22)
[2017-10-17] VITALS (7 sets, daily range): BP systolic 102–139; BP diastolic 50–94
[2017-10-17] MEDS: IPRATROPIUM BROMIDE 0.5 MG/2.5 ML NEB SOLUTION NEB SCH ×4 (02:33→19:52)
[2017-10-17] MEDS: ALBUTEROL SULFATE 2.5 MG/0.5 ML NEB SOLUTION NEB SCH ×4 (02:34→19:52)
[2017-10-17] MEDS: UDCUP GT SCH ×3 (06:24→20:55)
[2017-10-17] MEDS: CARBAMAZEPINE 200 MG/10 ML GT SCH ×3 (06:24→20:55)
[2017-10-17 07:35] LABS: BASOPHILS % (AUTO) 0.5 % (0.0-2.0); EOSINOPHILS % (AUTO) 3.4 % (1.0-6.0); HEMATOCRIT 35.2 % (36-46); HEMOGLOBIN 12.4 g/dL (12.0-16.0); LYMPHOCYTES # (AUTO) 3.1 K/uL (1.0-4.8); MEAN CORPUSCULAR HEMOGLOBIN 33.2 pg (26.0-34.0); MEAN CORPUSCULAR HGB CONC 35.2 G/dL (31.0-37.0); MEAN CORPUSCULAR VOLUME 94 fL (80-100); MONOCYTES # (AUTO) 0.7 K/uL (0.1-1.0); MONOCYTES % (AUTO) 10.6 % (2.0-9.0); NEUTROPHILS # (AUTO) 2.3 K/uL (1.8-7.7); NEUTROPHILS % (AUTO) 36.5 % (40.0-70.0); PLATELET COUNT (AUTO) 211 K/uL (150-450); RED BLOOD CELL COUNT(AUTO) 3.74 MIL/uL (4.00-5.20); RED CELL DISTRIBUTION WIDTH 12.6 % (11.5-14.5); WHITE BLOOD COUNT (AUTO) 6.3 K/uL (4.5-11.0)
[2017-10-17] MEDS: CHOLECALCIFEROL (VIT D3) 1,000 UNITS TABLET GT SCH (07:43)
[2017-10-17] MEDS: HEPARIN SODIUM,PORCINE 5,000 UNITS/ML VIAL SQ SCH ×2 (07:43→20:54)
[2017-10-17] MEDS: DIAZEPAM 5 MG TABLET GT SCH ×2 (07:44→20:53)
[2017-10-17] MEDS: GLYCOPYRROLATE 1 MG TABLET GT SCH ×2 (07:45→20:55)
[2017-10-17] MEDS: TiZANidine HCL 4 MG TABLET GT SCH ×3 (07:45→20:54)
[2017-10-17] MEDS: CALCIUM OYSTER SHELL 500 MG TABLET GT SCH (07:45)
[2017-10-17] MEDS: BACLOFEN 10 MG TABLET GT SCH ×4 (07:45→20:55)
[2017-10-17] MEDS: POLYETHYLENE GLYCOL 3350 17 GM PACKET GT SCH (07:46)
[2017-10-17] MEDS: LevETIRAcetam 100 MG/ML 5 ML SOLUTION UDCUP GT SCH ×2 (07:46→20:55)
[2017-10-17] MEDS: OXYGEN THERAPY IH SCH ×2 (07:47→20:42)
[2017-10-17] MEDS: FAMOTIDINE 20 MG TABLET GT SCH (07:47)
[2017-10-17] MEDS: ASCORBIC ACID 500 MG TABLET GT SCH ×2 (07:47→20:54)
[2017-10-17 07:51] LABS: ALANINE AMINOTRANSFERASE 34 U/L (12-78); ALBUMIN 3.3 g/dL (3.4-5.0); ANION GAP 9 mmol/L (8-16); ASPARTATE AMINOTRANSFERASE 29 U/L (15-37); BILIRUBIN,TOTAL 0.3 mg/dL (0.1-1.0); CALCIUM, TOTAL 9.2 mg/dL (8.8-10.5); CARBON DIOXIDE 26 mmol/L (22-29); CHLORIDE 100 mmol/L (98-107); CREATININE 0.72 mg/dL (0.60-1.30); GLOMERULAR FILTR. RATE CALC > 60 mL/min (>60); POTASSIUM 3.7 mmol/L (3.5-5.1); SODIUM SERUM 135 mmol/L (136-145); TOTAL PROTEIN, SERUM 7.9 g/dL (6.4-8.2); UREA NITROGEN, BLOOD 10 mg/dL (7-18)
[2017-10-17 10:42] LABS: APPEARANCE,URINE CLEAR (CLEAR); GLUCOSE, URINE (UA) NEGATIVE (NEGATIVE); KETONES,URINE NEGATIVE (NEGATIVE); LEUKOCYTE ESTERASE ,URINE NEGATIVE (NEGATIVE); OCCULT BLOOD,URINE NEGATIVE (NEGATIVE); PROTEIN,URINE NEGATIVE (NEGATIVE)
[2017-10-17 10:44] LABS: ADD UA MICROSCOPIC NO
[2017-10-17] MEDS: DiphenhydrAMINE HCL 25 MG/10 ML ELIXIR UDCUP GT SCH (20:54)
[2017-10-17] MEDS: GuaiFENesin SR 600 MG ER TABLET PO SCH (20:58)
[2017-10-17 21:48] LABS: GLUCOSE,POINT OF CARE 100 MG/DL (70-110)
[2017-10-17] MEDS: LEVOFLOXACIN 500 MG/D5% WATER 100 ML IV SCH (22:34)
[2017-10-18] MEDS: IPRATROPIUM BROMIDE 0.5 MG/2.5 ML NEB SOLUTION NEB SCH ×3 (01:48→14:37)
[2017-10-18] MEDS: ALBUTEROL SULFATE 2.5 MG/0.5 ML NEB SOLUTION NEB SCH ×3 (01:48→14:37)
[2017-10-18 05:24] VITALS: BP 138/81
[2017-10-18] MEDS: UDCUP GT SCH ×2 (06:10→09:52)
[2017-10-18] MEDS: CARBAMAZEPINE 200 MG/10 ML GT SCH ×2 (06:10→09:52)
[2017-10-18 07:30] VITALS: BP 151/94
[2017-10-18 07:33] LABS: GLUCOSE,POINT OF CARE 99 MG/DL (70-110)
[2017-10-18 07:33] LABS: GLUCOSE,POINT OF CARE 101 MG/DL (70-110)
[2017-10-18] MEDS: GuaiFENesin SR 600 MG ER TABLET PO SCH (09:00)
[2017-10-18] MEDS: CHOLECALCIFEROL (VIT D3) 1,000 UNITS TABLET GT SCH (09:52)
[2017-10-18] MEDS: HEPARIN SODIUM,PORCINE 5,000 UNITS/ML VIAL SQ SCH (09:52)
[2017-10-18] MEDS: POLYETHYLENE GLYCOL 3350 17 GM PACKET GT SCH (09:52)
[2017-10-18] MEDS: DIAZEPAM 5 MG TABLET GT SCH (09:52)
[2017-10-18] MEDS: CALCIUM OYSTER SHELL 500 MG TABLET GT SCH (09:53)
[2017-10-18] MEDS: TiZANidine HCL 4 MG TABLET GT SCH ×2 (09:53→16:26)
[2017-10-18] MEDS: LevETIRAcetam 100 MG/ML 5 ML SOLUTION UDCUP GT SCH (09:53)
[2017-10-18] MEDS: BACLOFEN 10 MG TABLET GT SCH ×3 (09:53→16:26)
[2017-10-18] MEDS: GLYCOPYRROLATE 1 MG TABLET GT SCH (09:54)
[2017-10-18] MEDS: ASCORBIC ACID 500 MG TABLET GT SCH (09:55)
[2017-10-18] MEDS: OXYGEN THERAPY IH SCH (09:55)
[2017-10-18] MEDS: FAMOTIDINE 20 MG TABLET GT SCH (09:57)
[2017-10-18 11:08] VITALS: BP 144/78
[2017-10-18] MEDS ORDERED: LEVO500 PO (14:38)
[2017-10-18] MEDS ORDERED: GUAIF10 PO (15:02)
[2017-10-18] MEDS ORDERED: IPRAHFA IH (15:06)
[2017-10-18 15:45] VITALS: BP 151/83
[2017-10-19 20:42] LABS: GLUCOSE,POINT OF CARE 110 MG/DL (70-110)
== END 2017-10-18 18:30 | disposition home or self-care (01) | DRG 140 ==
LOC: EMS 19:43 → 5S 10-16 01:44
PROVIDERS: ADMIT Internal Medicine; ATTEND Internal Medicine
DX: J44.1 Chronic obstructive pulmonary disease with (acute) exacerbation (principal); E43 Unspecified severe protein-calorie malnutrition; M41.9 Scoliosis, unspecified; E78.5 Hyperlipidemia, unspecified; G80.9 Cerebral palsy, unspecified; G40.909 Epilepsy, unspecified, not intractable, without status epilepticus; K59.00 Constipation, unspecified; K21.9 Gastro-esophageal reflux disease without esophagitis; F79 Unspecified intellectual disabilities; Z87.01 Personal history of pneumonia (recurrent); Z90.49 Acquired absence of other specified parts of digestive tract; Z93.1 Gastrostomy status; Z88.8 Allergy status to other drugs, medicaments and biological substances
CPT/HCPCS: 82962; 83605; 87040; 87804; 94640; 96361; 96365; 96374; 99285; J0131; J1644; J1956; J2930; J7030; J7040

== ENCOUNTER 2018-12-26 08:28 | Inpatient (IN) | payer MEDICAID ==
[~2018-12-26] VITALS: Ht 137.2 cm; Wt 38.5 kg
[~2018-12-26 08:28] MED LIST changes: +ASCO500 GT; -ASCO500S2 PO; +DIPH25 PO; -ERGO400C GT; -GUAI118.5 PO; +GUAIF10 PO; +IPRAHFA IH; -IPRNEB IH; -IPRNEB NEB; -LEVO250 PO; +LEVO500 PO; -MULT240L12 GT; -NORE-20 GT; +NORE-53 GT; +ONDA4 GT; +POLY17PO20 GT; -POLY17PO20 PO; +VITAD1000 GT
[2018-12-26] MEDS ORDERED: SODIUM CHLORIDE 0.9% 1,000 ML IV ONE ×3 (08:42→13:00)
[2018-12-26] MEDS ORDERED: ACETAMINOPHEN 160 MG/5 ML SUSPENSION UDCUP PEG ONE (08:45)
[2018-12-26] MEDS ORDERED: ACETAMINOPHEN 650 MG RECTAL SUPPOSITORY PR ONE (09:15)
[2018-12-26 09:39] LABS: BASOPHILS % (AUTO) 0.1 % (0.0-2.0); EOSINOPHILS % (AUTO) 0.1 % (1.0-6.0); HEMOGLOBIN 16.5 g/dL (12.0-16.0); LYMPHOCYTES # (AUTO) 0.8 K/uL (1.0-4.8); LYMPHOCYTES % (AUTO) 5.2 % (22.0-44.0); MEAN CORPUSCULAR HEMOGLOBIN 32.7 pg (26.0-34.0); MEAN CORPUSCULAR HGB CONC 33.8 G/dL (31.0-37.0); MEAN CORPUSCULAR VOLUME 97 fL (80-100); MONOCYTES # (AUTO) 0.8 K/uL (0.1-1.0); MONOCYTES % (AUTO) 4.9 % (2.0-9.0); NEUTROPHILS # (AUTO) 14.6 K/uL (1.8-7.7); NEUTROPHILS % (AUTO) 89.7 % (40.0-70.0); PLATELET COUNT (AUTO) 344 K/uL (150-450); RED BLOOD CELL COUNT(AUTO) 5.05 MIL/uL (4.00-5.20)
[2018-12-26] MEDS ORDERED: LEVOFLOXACIN 500 MG/D5% WATER 100 ML IV ONE (09:45)
[2018-12-26] MEDS ORDERED: PIPERACILLIN/TAZO 3.375 GM/D5W 50 ML IV ONE (09:45)
[2018-12-26 09:51] LABS: ANION GAP 26 mmol/L (8-16); CALCIUM, TOTAL 11.2 mg/dL (8.8-10.5); CARBON DIOXIDE 16 mmol/L (22-29); CHLORIDE 99 mmol/L (98-107); GLOMERULAR FILTR. RATE CALC 23 mL/min (>60); GLUCOSE,RANDOM 178 mg/dL (70-110); POTASSIUM 4.5 mmol/L (3.5-5.1); PROTHROMBIN TIME 10.8 SEC (9.4-11.6); SODIUM SERUM 141 mmol/L (136-145); UREA NITROGEN, BLOOD 47 mg/dL (7-18)
[2018-12-26 10:00] LABS: LACTIC ACID 7.1 mmol/L (0.4-2.0)
[2018-12-26 10:04] LABS: APPEARANCE,URINE CLEAR (CLEAR); BILIRUBIN,URINE NEGATIVE (NEGATIVE); GLUCOSE, URINE (UA) NEGATIVE (NEGATIVE); KETONES,URINE 15 mg/dL (NEGATIVE); LEUKOCYTE ESTERASE ,URINE SMALL (NEGATIVE); NITRATE,URINE NEGATIVE (NEGATIVE); OCCULT BLOOD,URINE NEGATIVE (NEGATIVE); PROTEIN,URINE SEE CONFIRM (NEGATIVE); UROBILINOGEN,URINE 0.2 mg/dL (<=1.0)
[2018-12-26 10:14] LABS: SULFOSALICYLIC ACID,URINE 2+ (Negative)
[2018-12-26 10:15] LABS: BACTERIA,URINE Rare /HPF (None Seen); RBC,URINE 0-2 /HPF (0-2); SQUAMOUS EPITHELIAL CELL,UR Few /LPF (None Seen); WBC,URINE 0-2 /HPF (0-5)
[2018-12-26 10:24] LABS: ALANINE AMINOTRANSFERASE 94 U/L (12-78); ALBUMIN 4.1 g/dL (3.4-5.0); ALKALINE PHOSPHATASE 92 U/L (46-116); ASPARTATE AMINOTRANSFERASE 67 U/L (15-37); BILIRUBIN,TOTAL 0.9 mg/dL (0.1-1.0); CREATINE KINASE, TOTAL ONLY 99 U/L (26-192); TOTAL PROTEIN, SERUM 8.8 g/dL (6.4-8.2)
[2018-12-26 10:25] LABS: ABG A-A DIFF O2 239.6 mmHg (10-20.0); ABG CARBOXYHEMOGLOBIN 0.7 % (0.0-1.5); ABG METHEMOGLOBIN 0.1 % (0.0-1.5); ABG OXYGEN CONTENT 21.4 mL/dL (15.0-23.0); ABG OXYGEN SATURATION 95.2 % (95.0-98.0); ABG OXYHEMOGLOBIN 94.4 % (94.0-100.0); ABG PCO2 31 mmHg (35-45); ABG PH 7.314 (7.35-7.450); ABG TOTAL HEMOGLOBIN 16.1 G/dL (12.0-18.0); PO2, ARTERIAL BG 82.6 mmHg (84.0-92.0); SOURCE, BLOOD GAS ARTERIAL; TEMPERATURE, FAHRENHEIT, BG 98.6 FAHREN (96.0-98.6)
[2018-12-26 10:28] LABS: INSPIRATORY TIME, BG 0.9 SEC; O2 DEVICE,BLOOD GAS BIPAP (ROOM AIR); SITE, BLOOD GAS LFT RADIAL
[2018-12-26] MEDS ORDERED: ONDANSETRON HCL 4 MG/2 ML VIAL IVP PRN ×2 (13:00→14:15)
[2018-12-26] MEDS ORDERED: ACETAMINOPHEN 325 MG TABLET PO PRN ×2 (13:00→14:15)
[2018-12-26 13:42] LABS: INFLUENZA TYPE A NEGATIVE FOR TYPE A (NEGATIVE); INFLUENZA TYPE B NEGATIVE FOR TYPE B (NEGATIVE)
[2018-12-26] MEDS ORDERED: MAGNESIUM HYDROXIDE SUSPENSION 30 ML UDCUP PO PRN (14:15)
[2018-12-26] MEDS ORDERED: *CLINICAL-LEVOFLOXACIN IVPB DOSING CLINICAL ONE (14:15)
[2018-12-26] MEDS ORDERED: MORPHINE SULFATE 2 MG/ML SYRINGE IVP PRN (14:15)
[2018-12-26] MEDS ORDERED: ZOLPIDEM TARTRATE 5 MG TABLET PO PRN (14:15)
[2018-12-26] MEDS ORDERED: BISACODYL 10 MG RECTAL RECTAL SUPPOSITORY PR PRN (14:15)
[2018-12-26] MEDS ORDERED: HYDROCODONE/ACETAMINOPHEN 5-325 MG TABLET PO PRN (14:15)
[2018-12-26] MEDS ORDERED: ALBUTEROL SULFATE 2.5 MG/0.5 ML NEB SOLUTION NEB PRN (14:15)
[2018-12-26] MEDS ORDERED: IPRATROPIUM BROMIDE 0.5 MG/2.5 ML NEB SOLUTION NEB PRN (14:15)
[2018-12-26] MEDS ORDERED: LORazepam 2 MG/ML VIAL IVP PRN (14:45)
[2018-12-26] MEDS: BENZONATATE 100 MG CAPSULE PO SCH ×2 (16:00→21:00)
[2018-12-26] MEDS: HEPARIN SODIUM,PORCINE 5,000 UNITS/ML VIAL SQ SCH ×2 (18:08→23:50)
[2018-12-26] MEDS: MethylPREDNISolone SOD SUCC 125 MG/2 ML VIAL IVP SCH ×2 (18:08→23:49)
[2018-12-26 18:36] VITALS: BP 98/42
[2018-12-26] MEDS ORDERED: IPRATROPIUM BROMIDE 0.5 MG/2.5 ML NEB SOLUTION NEB SCH (20:00)
[2018-12-26] MEDS ORDERED: ALBUTEROL SULFATE 2.5 MG/0.5 ML NEB SOLUTION NEB SCH (20:00)
[2018-12-26] MEDS ORDERED: SODIUM CHLORIDE 0.9% 250 ML IV ONE (20:59)
[2018-12-26] MEDS ORDERED: LEVETIRACETAM IV SCH (21:00)
[2018-12-26] MEDS ORDERED: DEXTROSE 5% IV SCH (21:00)
[2018-12-26] MEDS ORDERED: DOCUSATE SODIUM 100 MG CAPSULE PO SCH (21:00)
[2018-12-26] MEDS ORDERED: CarBAMazepine 200 MG TABLET PO SCH (21:00)
[2018-12-26] MEDS ORDERED: WATER IV SCH (21:00)
[2018-12-26] MEDS ORDERED: ASCORBIC ACID 500 MG TABLET GT SCH (21:00)
[2018-12-26] MEDS ORDERED: GuaiFENesin SR 600 MG ER TABLET PO SCH (21:00)
[2018-12-26] MEDS ORDERED: GLYCOPYRROLATE 1 MG TABLET GT SCH (21:00)
[2018-12-26] MEDS ORDERED: DIAZEPAM 5 MG TABLET GT SCH (21:00)
[2018-12-26] MEDS ORDERED: LevETIRAcetam 100 MG/ML 5 ML SOLUTION UDCUP GT SCH (21:00)
[2018-12-26] MEDS ORDERED: ACETAMINOPHEN 650 MG/20.3 ML SOLUTION UDCUP GT PRN (21:15)
[2018-12-26] MEDS ORDERED: MAGNESIUM HYDROXIDE SUSPENSION 30 ML UDCUP GT PRN (21:18)
[2018-12-26] MEDS ORDERED: HYDROCODONE/ACETAMINOPHEN 5-325 MG TABLET GT PRN (21:18)
[2018-12-26] MEDS ORDERED: ZOLPIDEM TARTRATE 5 MG TABLET GT PRN (21:18)
[2018-12-26] MEDS ORDERED: CARBAMAZEPINE 200 MG/10 ML GT SCH (22:00)
[2018-12-26] MEDS ORDERED: UDCUP GT SCH (22:00)
[2018-12-27] MEDS ORDERED: DEXTROSE 5%-0.45% SODIUM CHL 1,000 ML IV ONE (01:00)
[2018-12-27] MEDS ORDERED: EPINEPHrine 1:10,000 [1 MG/10 ML] SYRINGE IVP ONE (02:23)
[2018-12-27] MEDS ORDERED: SODIUM BICARBONATE [ADULT] 8.4% 50 MEQ/50 ML SYRINGE IVP ONE (02:23)
[2018-12-27] MEDS ORDERED: CARBAMAZEPINE 200 MG/10 ML GT SCH (07:00)
[2018-12-27] MEDS ORDERED: UDCUP GT SCH (07:00)
[2018-12-27] MEDS ORDERED: CHOLECALCIFEROL (VIT D3) 1,000 UNITS TABLET GT SCH (09:00)
[2018-12-27] MEDS ORDERED: LANSOPRAZOLE 30 MG SOLUBLE TABLET GT SCH (09:00)
[2018-12-27] MEDS ORDERED: PANTOPRAZOLE SODIUM 40 MG DR TABLET PO SCH (09:00)
[2018-12-28] MEDS ORDERED: LEVOFLOXACIN 250 MG/D5% WATER 50 ML IV SCH (10:00)
== END 2018-12-27 02:24 | disposition expired | DRG 720 ==
LOC: EMS 08:29 → 5S 15:46
PROVIDERS: ADMIT Internal Medicine; ATTEND Internal Medicine
PROC: 5A09357 Assistance with Respiratory Ventilation, Less than 24 Consecutive Hours, Continuous Positive Airway Pressure (ICD-10-PCS; principal; 2018-12-26)
DX: A41.9 Sepsis, unspecified organism (principal); J96.01 Acute respiratory failure with hypoxia; I46.9 Cardiac arrest, cause unspecified; E43 Unspecified severe protein-calorie malnutrition; J18.9 Pneumonia, unspecified organism; J44.0 Chronic obstructive pulmonary disease with (acute) lower respiratory infection; R13.10 Dysphagia, unspecified; J44.1 Chronic obstructive pulmonary disease with (acute) exacerbation; G80.9 Cerebral palsy, unspecified; G40.909 Epilepsy, unspecified, not intractable, without status epilepticus; F79 Unspecified intellectual disabilities; M41.9 Scoliosis, unspecified; Z93.1 Gastrostomy status; Z68.20 Body mass index [BMI] 20.0-20.9, adult
CPT/HCPCS: 36600; 51702; 74176; 82805; 83605; 87040; 87804; 92950; 93005; 94640; 94660; 94799; 96365; 99291; G0378; J0171; J0712; J1644; J1956; J2543; J2930; J3490; J7030; J7050; J7060